=== PATIENT | female | born 2000 | race African-American/Black ===

== ENCOUNTER 2024-08-05 11:28 | Emergency (ER) | payer MEDICAID ==
[~2024-08-05] VITALS: Ht 149.9 cm; Wt 45.7 kg
[2024-08-05 11:32] VITALS: BP 117/71; PULSE 67; RESP 18; TEMP 98.8; O2SAT 100
--- NOTE | 2024-08-05 12:07 | RADIOLOGY REPORT ---
CLINICAL INDICATION: HAND PAIN TECHNIQUE: 3 radiographic views of the left hand were obtained. Comparison: None FINDINGS/IMPRESSION: There is no evidence of acute fracture or dislocation. The visualized joint space is well maintained. The alignment is anatomical. There is no radiopaque foreign body.
--- NOTE | 2024-08-05 12:14 | Physician Documentation ---
History of Present Illness ~ Chief Complaint: Hand pain Stated Complaint: CYST Time Seen by MD: 12:08 HPI This is a 24-year-old female who presents with a painful slowly enlarging lump to posterior aspect of her left wrist. Patient reports no recent trauma. Patient reports that occasionally she will have shooting pain down her fingers in upper arm and occasionally her hand while cramp. Medication Reconciliation Allergies: Coded Allergies: aloe vera (Verified Allergy, Unknown, 08/05/24) Review of Systems ROS Lump on wrist as stated above in the HPI, otherwise all systems are reviewed and negative. Physical Exam Vital Signs: Temperature: 98.8, Heart Rate: 67, Respiratory Rate: 18, BP: 117/71, Pulse Oximetry: 100, Weight: 45.660 Oxygen Flow Rate: 0 Physical Exam VITALS: Reviewed and as above. GENERAL: Alert, nontoxic appearing, no apparent distress. RESPIRATORY: No increased work of breathing, no respiratory distress, speaking in full clear sentences MUSCULOSKELETAL: Dorsal Left wrist minimally mobile well-circumscribed rubbery mass approximately 7 cm minimally tender to palpation, range of motion and sensation intact in left hand and wrist SKIN: No erythema, no ecchymosis Progress Results/Orders Results/Orders Orders - ALEXANDER MARION [employer] Ortho Orders (08/05/24 ) Vital Signs 08/05/24 11:32 Temp 98.8 Pulse 67 Resp 18 B/P (MAP) 117/71 Pulse Ox 100 O2 Flow Rate 0 EKG/XRAY/CT/US/VASC/MRI Bone/Soft Tissue X-Ray (Ext.) : Additional Comment CLINICAL INDICATION: HAND PAIN TECHNIQUE: 3 radiographic views of the left hand were obtained. Comparison: None FINDINGS/IMPRESSION: There is no evidence of acute fracture or dislocation. The visualized joint space is well maintained. The alignment is anatomical. There is no radiopaque foreign body. Electronically Signed by:MARLO HURD MD Date & Time: 08/05/241203 Dictated by: MARLO HURD MD Dictation date and time: 08/05/24 1204 I have reviewed and agree with the radiology report. I have reviewed and interpreted the imaging as: No fracture or dislocation Medical Decision Making Findings This is a 24-year-old female who presented with a mildly tender, well- circumscribed, semi mobile, rubbery mass approximately 7mm in size to left wrist. Physical exam consistent with ganglion cyst. Remainder of physical exam benign and patient is well-appearing with stable vital signs, patient appropriate for outpatient follow up. Patient provided follow up instructions, home care instructions, and return to care precautions which she verbalized understanding of. Wrist Diff Dx:Considerations: Include: Abrasion, Arthritis, DJD, Gout, Rheumatoid, Septic, Carpal tunnel snydrome, Dislocation, Fracture-carpal, Fracture-radius, Fracture-ulna, Ganglion, Laceration, Neurovascular injury, Strain Departure Disposition: HOME / SELF CARE / HOMELESS Impression: Primary Impression: Ganglion cyst Condition: Improved Discharge Instructions: Ganglion Cyst Additional Instructions: This appears to be what is known as a ganglion cyst it as swelling to your tend on sheath, this can pinched the nerve in your wrist which is causing the pain. You will need to follow up with a primary care provider for referral to hand specialist for removal. Please follow up with your primary care provider in the next few days. Please return to the emergency department for any new or worsening concerning symptoms. You may use ibuprofen and or Tylenol as needed for pain as directed by [id number] packaging. You may wear the provided wrist splint at night if it helps with symptoms, otherwise you should move your wrist normally. Referrals: NO PRIMARY CARE PROVIDER (PCP) Education Educated: Patient Educated regarding: diagnosis, treatment, prognosis, need for follow up Signature Scribe Signature: No scribe Attestation: The note accurately reflects work and decisions made by me.KAREEM Davey 08/05/24 21:56 ALEXANDER MARION Aug 05, 2024 12:14
== END 2024-08-05 12:39 | disposition home or self-care (01) ==
LOC: ER 11:29
DX: M67.432 Ganglion, left wrist (principal)
CPT/HCPCS: 73130; 99283

== ENCOUNTER 2024-08-26 20:05 | Emergency (ER) | payer MEDICAID ==
[~2024-08-26] VITALS: Ht 149.9 cm; Wt 48.4 kg
[2024-08-26 20:09] VITALS: PULSE 89
--- NOTE | 2024-08-26 20:50 | Physician Documentation ---
History of Present Illness ~ Chief Complaint: Ear Pain Stated Complaint: EAR PAIN Time Seen by MD: 20:30 Primary Medical Doctor: NINI DOUGLASS Patient is seen today with complaints of pain of her right ear. Patient denies swimming or getting her head under water at all recently. Patient states she has had cough and cold-like symptoms off and on over the last few months but nothing recent. Patient denies any fevers or chills. She has no other concern or complaint at this time. Medication Reconciliation Allergies: Coded Allergies: aloe vera (Verified Allergy, Unknown, 08/05/24) Past Medical History Last Menstrual Period: Aug 21, 2024 Review of Systems Constitutional: Denies: chills, fever, weakness Eyes: Denies: pain, blurred vision ENT: Denies: ear pain, nose pain, throat pain, mouth pain Respiratory: Denies: cough, shortness of breath Cardiovascular: Denies: chest pain, palpitations Gastrointestinal: Denies: abdominal pain, nausea, vomiting Genitourinary: Denies: burning, dysuria Female Genitalia: Denies: vaginal discharge, pelvic pain Neurological: Denies: headache, dizziness Musculoskeletal: Denies: pain, swelling Integumentary: Denies: rash, lesions Allergic/Immunologic: Denies: hives, itching Hematologic/Lymphatic: Denies: no symptoms reported Psychiatric: Denies: depression, anxiety Physical Exam Vital Signs: Temperature: 98.6, Heart Rate: 89, Respiratory Rate: 16, BP: 115/70, Pulse Oximetry: 99, Weight: 48.350 Oxygen Flow Rate: 0 Physical Exam General: Awake and Alert, no acute distress. HEENT: Patient on exam has TMs intact and unremarkable bilaterally that appear healthy and no swelling of the TMs and cone of light visible and unremarkable bilaterally. Patient does have what appears to be a carbuncle in the opening of the canal just inside the tragus of the right ear. I do not appreciate any swelling pass the carbuncle. The carbuncle is about pea sized. Conjunctiva pink, Sclera clear, Mucus Membranes moist. Neck: Supple without masses and tenderness. Resp: Unlabored. Lungs clear to auscultation bilaterally. Heart: Regular Rate and rhythm, normal S1 and S2 without murmur, rub or gallop. Extremities: No cyanosis,clubbing or edema. Skin: Warm and Dry. Progress Results/Orders Results/Orders Vital Signs 08/26/24 20:09 Temp 98.6 Pulse 89 Resp 16 B/P (MAP) 115/70 Pulse Ox 99 O2 Flow Rate 0 Medical Decision Making Findings Patient is seen today with complaints of pain of her right ear. Patient denies swimming or getting her head under water at all recently. Patient states she has had cough and cold-like symptoms off and on over the last few months but nothing recent. Patient denies any fevers or chills. She has no other concern or complaint at this time. Patient was given dose of Bactrim DS by mouth in the ED tonight along with Tylenol and ibuprofen for treatment of pain in for treatment of the carbuncle. Prescription of Bactrim DS was sent to patient's pharmacy and patient will continue Tylenol and ibuprofen as needed for symptomatic pain relief. Patient will follow up with primary care in 3-5 days if no better as needed sooner and possibly get referral to Dermatology. Return to ED with any worsening, concerning or changing symptoms. Departure Disposition: 01 HOME / SELF CARE / HOMELESS Impression: Primary Impression: Carbuncle of right ear Condition: Stable Discharge Instructions: Abscess, Care After Additional Instructions: Patient was given dose of Bactrim DS by mouth in the ED tonight along with Tylenol and ibuprofen for treatment of pain in for treatment of the carbuncle. Prescription of Bactrim DS was sent to patient's pharmacy and patient will continue Tylenol and ibuprofen as needed for symptomatic pain relief. Patient will follow up with primary care in 3-5 days if no better as needed sooner and possibly get referral to Dermatology. Return to ED with any worsening, concerning or changing symptoms. Referrals: NO PRIMARY CARE PROVIDER (PCP) Prescriptions Sulfamethoxazole/Trimethoprim (Bactrim Ds Tablet) 800 Mg-160 Mg Tablet 1 TAB PO Q12H for 10 Days, #20 TAB Prov: KEZIA TRENT 08/26/24 Signature Scribe Signature: No scribe Attestation: No scribe KEZIA TRENT Aug 26, 2024 20:50
[2024-08-26] MEDS ORDERED: SULF1TAB49 PO (20:52)
[2024-08-26] MEDS: ibuprofen tablet 400 MG TABLET PO STA (21:04)
[2024-08-26] MEDS: sulfamethoxazole/trimethoprim DS (800/160mg) tablet PO STA (21:04)
[2024-08-26 21:06] VITALS: BP 120/55; RESP 16; TEMP 98.6; O2SAT 100
== END 2024-08-26 21:19 | disposition home or self-care (01) ==
LOC: ER 20:06
DX: L02.838 Carbuncle of other sites (principal)
CPT/HCPCS: 99284

== ENCOUNTER 2024-11-10 03:56 | Emergency (ER) | payer MEDICAID ==
[~2024-11-10] VITALS: Ht 149.9 cm; Wt 44.5 kg
[2024-11-10 04:04] VITALS: BP 120/62; PULSE 62; RESP 16; TEMP 97.7; O2SAT 100
== END 2024-11-10 05:27 | disposition left against medical advice (07) ==
LOC: ER 03:57
DX: R10.9 Unspecified abdominal pain (principal)
CPT/HCPCS: 99281